=== PATIENT | male | born 1965 | race Caucasian/White ===

== ENCOUNTER 2017-10-03 06:13 | Day surgery (SDC) | payer OTHER ==
[~2017-10-03] VITALS: Ht 182.9 cm; Wt 149.0 kg
[2017-10-03 07:10] LABS: HEMATOCRIT 49.6 % (42.0-52.0); HEMOGLOBIN 16.5 g/dl (13.5-18.0); MEAN CELL VOLUME 89 fl (80.0-100.0); MEAN CORPUSCULAR HEMOGLOBIN 30 pg (27.0-31.0); MEAN CORPUSCULAR HGB CONC 33 g/dl (33.0-37.0); MEAN PLATELET VOLUME 9.7 fl (7.4-10.4); PLATELET COUNT 266 K/mm3 (130-400); RED BLOOD COUNT 5.58 M/mm3 (4.20-5.60); REDCELL DISTRIBUTION WIDTH-CV 13.3 % (11.5-14.5)
[2017-10-03 07:16] VITALS: BP 149/84; PULSE 71; TEMP 97.6
[2017-10-03 07:19] LABS: PROTHROMBIN TIME 11.9 SECONDS (9.7-12.8)
[2017-10-03] MEDS ORDERED: LIPITOR 40MG TA40 MG PO (07:19)
[2017-10-03] MEDS ORDERED: ELIQUIS 5MG PO (07:19)
[2017-10-03] MEDS ORDERED: TYLENOL 325MG325 MG PO (07:19)
[2017-10-03] MEDS ORDERED: ZESTRIL 10MG10 MG PO (07:20)
[2017-10-03] MEDS ORDERED: TOPROL XL100 MG PO (07:21)
[2017-10-03] MEDS ORDERED: ZANTAC 150MG T150 MG PO (07:22)
[2017-10-03 07:27] LABS: CALCIUM 9.8 mg/dL (8.4-10.2); CREATININE, serum 0.85 mg/dL (0.66-1.25); POTASSIUM 4.3 mmol/L (3.4-5.0)
[2017-10-03 07:57] LABS: THYROID STIMULATING HORMONE 0.943 uIU/mL (0.465-4.680)
[2017-10-03] MEDS ORDERED: ASPIRIN E.C. 8181 MG PO (09:36)
[2017-10-03] MEDS ORDERED: MULTAQ400 MG PO (09:36)
== END 2017-10-03 09:54 | disposition home or self-care (01) ==
LOC: COL.CAR 06:13
PROVIDERS: Internal Medicine Cardiovascular Disease
DX: I48.91 Unspecified atrial fibrillation (principal); I25.2 Old myocardial infarction; I10 Essential (primary) hypertension; K21.9 Gastro-esophageal reflux disease without esophagitis; E11.9 Type 2 diabetes mellitus without complications; I87.2 Venous insufficiency (chronic) (peripheral); G47.33 Obstructive sleep apnea (adult) (pediatric); F17.210 Nicotine dependence, cigarettes, uncomplicated; E78.5 Hyperlipidemia, unspecified; Z53.8 Procedure and treatment not carried out for other reasons; Z79.52 Long term (current) use of systemic steroids; Z79.01 Long term (current) use of anticoagulants; Z88.8 Allergy status to other drugs, medicaments and biological substances; Z82.49 Family history of ischemic heart disease and other diseases of the circulatory system

== ENCOUNTER 2019-05-27 11:13 | Observation (INO) | payer OTHER ==
[~2019-05-27] VITALS: Ht 365.8 cm; Wt 158.4 kg
[~2019-05-27 11:13] MED LIST: ASPIRIN E.C. 8181 MG PO; ELIQUIS 5MG PO; LIPITOR 40MG TA40 MG PO; MULTAQ400 MG PO; TOPROL XL100 MG PO; TYLENOL 325MG325 MG PO; ZANTAC 150MG T150 MG PO; ZESTRIL 10MG10 MG PO
--- NOTE | 2019-05-27 11:30 | NUR ---
PT TRANSFERRED FROM [facility] WITH CHEST PAINS. PT WAS IS AFIB W/RVR BUT WAS ON A CARDIZEM DRIP AT [facility] AND CONVERTED TO NSR. ONCE TO [facility]IA [facility] ROOM 311, PT WAS ADMITTED AND GIVEN AN EKG; RESULTS SHOW NSR WITH A 1ST DEGREE HEART BLOCK. ECHO COMPLETED, RT BROUGHT UP A BIPAP FOR THE PT. HE HAS OBSTRUCTIVE SLEEP APNEA, AND WEARS HIS BIPAP WITH 4L OF 02. HE IS SCHEDULED FOR A MEDICATION INDUCED STRESS TEST AND THEREFORE WILL NEED TO BE NPO AFTER MIDNIGHT. WILL CONTINUE TO MONITOR PATIENT.
[2019-05-27 12:20] VITALS: BP 134/92; PULSE 62; TEMP 98.5
[2019-05-27 12:24] VITALS: BP 134/92; PULSE 62; TEMP 98.5
[2019-05-27] MEDS ORDERED: PRINIVIL40 MG PO (14:30)
[2019-05-27 16:38] VITALS: BP 135/83; PULSE 71; TEMP 97.7
--- NOTE | 2019-05-27 17:00 | NUR ---
PT CONTINUES TO NOT COMPLAIN OF PAIN OR DISCOMFORT. RESTING COMFORTABLY IN HIS BED. DAUGHTER AT BEDSIDE. CALL LIGHT AND PT PHONE WITHIN REACH.
[2019-05-27 19:38] VITALS: BP 144/92; PULSE 70; TEMP 97.8
--- NOTE | 2019-05-27 20:00 | NUR ---
Resting in bed. Assessment complete. Bilateral lower leg edema +1 present. Lungs clear. Denies pain. Denies needs at this time. Call light in reach.
[2019-05-27 23:43] VITALS: BP 157/82; PULSE 76; TEMP 97.5
--- NOTE | 2019-05-28 | NUR ---
INT left Ac pulled out. Dressed with gauze. Denies needs at this time. Call light in reach.
[2019-05-28 04:01] VITALS: BP 149/76; PULSE 68; TEMP 97.8
[2019-05-28 05:42] VITALS: BP 149/76; PULSE 68
--- NOTE | 2019-05-28 06:21 | NUR ---
Patient had uneventful night. Resting in bed this AM.
[2019-05-28 06:41] LABS: BASO % 0.5 % (0.0-2.0); EOS # 0.3 (0.0-0.7); EOS % 2.8 % (0-4.0); GRAN # 5.6 (1.4-6.5); GRAN % 64.2 % (42.2-75.2); HEMATOCRIT 49.6 % (42.0-52.0); HEMOGLOBIN 16.1 g/dl (13.5-18.0); LYMPH # 2.2 (1.2-3.4); LYMPH % 24.7 % (20.0-51.0); MEAN CELL VOLUME 91 fl (80.0-100.0); MEAN CORPUSCULAR HEMOGLOBIN 30 pg (27.0-31.0); MEAN CORPUSCULAR HGB CONC 33 g/dl (33.0-37.0); MEAN PLATELET VOLUME 10.1 fl (7.4-10.4); MONO # 0.7 (0.1-0.6); MONO % 7.5 % (1.7-9.3); PLATELET COUNT 300 K/mm3 (130-400); RED BLOOD COUNT 5.46 M/mm3 (4.20-5.60); REDCELL DISTRIBUTION WIDTH-CV 13.2 % (11.5-14.5)
[2019-05-28 06:59] LABS: CALCIUM 9.1 mg/dL (8.4-10.2); CREATININE, serum 0.87 (0.66-1.25); POTASSIUM 4.2 mmol/L (3.4-5.0)
--- NOTE | 2019-05-28 07:18 | NUR ---
Report given to VENICE Amado
[2019-05-28 07:23] VITALS: BP 135/93; PULSE 72; TEMP 97.7
--- NOTE | 2019-05-28 09:15 | NUR ---
PT GOING DOWN FOR STRESS TEST AT THIS TIME.
[2019-05-28 09:50] VITALS: BP 146/96; PULSE 66
[2019-05-28 09:52] VITALS: BP 187/104; PULSE 104
[2019-05-28 09:54] VITALS: BP 162/92; PULSE 87
--- NOTE | 2019-05-28 10:40 | NUR ---
PT RETURNED FROM STRESS TEST AT THIS TIME.
[2019-05-28] MEDS ORDERED: ELIQUIS 5MG PO (10:46)
[2019-05-28] MEDS ORDERED: MULTAQ400 MG PO (10:46)
[2019-05-28] MEDS ORDERED: LIPITOR 40MG TA40 MG PO (10:58)
--- NOTE | 2019-05-28 11:12 | NUR ---
SARITHA met with the patient to discuss discharge plan. The patient lives in [place] with his oldest daughter, Jessi (ph#[phone]). He states that his , Stacy (ph#[phone]), lives in [place] for work. He reports independence with ADLs and does not use any assistive devices. He has a bipap from [facility]. The patient's PCP is Dr. Camp at [facility] and he receives his medications at [facility]. He reports no difficulties obtaining his meds. The patient was interested in completing a DPOA-HC. SARITHA provided form. The patient designated his , Stacy Snider. SARITHA and the patient's NEEDLE CONTROL CHENILLER, Sonja, witnessed the patient's signature. The patient was provided with the original and some copies. A copy was placed in the patient's chart. The patient plans to return back home upon discharge. No additional needs at this time.
--- NOTE | 2019-05-28 12:05 | NUR ---
THIS NURSE INFORMED PT THAT HE WOULD BE ABLE TO DISCHARGE DUE TO [facility] SCAN BEING CLEAR. IV AND TELE REMOVED. PT DISCHARGE EDUCATION PROVIDED. DRAWING OPERATOR WALKED PT OUTSIDE. PT STATED HE WOULD WAIT OUTSIDE AND CALL HIS SISTER TO GET HIM WHILE HE WAS WAITING OUTSIDE.
--- NOTE | 2019-05-28 14:01 | NUR ---
Primary nurse was assisted with [phone] patient care by [employer] student Liliana Robles and [employer] instructor Jing Antunez RN-.
== END 2019-05-28 12:05 | disposition home or self-care (01) ==
LOC: MEDICAL 11:13
PROVIDERS: ADMIT Hospitalist
DX: I21.A1 Myocardial infarction type 2 (principal); I48.0 Paroxysmal atrial fibrillation; I10 Essential (primary) hypertension; E78.5 Hyperlipidemia, unspecified; E66.01 Morbid (severe) obesity due to excess calories; R74.8 Abnormal levels of other serum enzymes; G47.33 Obstructive sleep apnea (adult) (pediatric); K21.9 Gastro-esophageal reflux disease without esophagitis; E11.9 Type 2 diabetes mellitus without complications; I87.2 Venous insufficiency (chronic) (peripheral); F17.210 Nicotine dependence, cigarettes, uncomplicated; Z79.82 Long term (current) use of aspirin; Z79.01 Long term (current) use of anticoagulants; Z88.8 Allergy status to other drugs, medicaments and biological substances; Z79.899 Other long term (current) drug therapy; Z82.49 Family history of ischemic heart disease and other diseases of the circulatory system
CPT/HCPCS: A9500; G0378; J2785

== ENCOUNTER 2022-11-28 09:42 | Day surgery (SDC) | payer OTHER ==
[~2022-11-28] VITALS: Ht 183 cm; Wt 153.8 kg
[2022-11-28] VITALS (410 sets, daily range): BP systolic 131–153; BP diastolic 85–120; PULSE 50–78; TEMP 97.6–98; O2SAT 71–100
[~2022-11-28 09:42] MED LIST changes: +PRINIVIL40 MG PO
[2022-11-28 11:02] LABS: CALCIUM 9.2 mg/dL (8.4-10.2); CREATININE, serum 0.88 mg/dL (0.72-1.25); POTASSIUM 4.2 mmol/L (3.5-4.5)
[2022-11-28 11:05] LABS: INR 1.4 (0.8-3.0); PROTHROMBIN TIME 16.3 SECONDS (9.7-12.8)
--- NOTE | 2022-11-28 17:30 | NUR ---
Patient had episode of bradycardia and became symptomatic; called MYA Patel and per Dr. Juan we are to hold the initial PO dose of sotalol and cardiology will reevaluate the patient in the morning.
--- NOTE | 2022-11-28 20:07 | NUR ---
Receive report from day shift nurse. Pt is eating on the side of the bed with a visitor in the room. Pt's vitals are stable at this time.
--- NOTE | 2022-11-28 21:15 | NUR ---
Pt denies pain, headache, dizziness, nausea, and light headedness upon assessment. Pt is oriented x4 and follows commands. Pt has call light within reach.
[2022-11-29] VITALS (461 sets, daily range): BP systolic 125–131; BP diastolic 84–105; PULSE 58–64; TEMP 97.8–98; O2SAT 75–100
[2022-11-29 05:48] LABS: CALCIUM 9.2 mg/dL (8.4-10.2); CREATININE, serum 0.87 mg/dL (0.72-1.25); MAGNESIUM 2.1 mg/dL (1.6-2.6); POTASSIUM 4.5 mmol/L (3.5-4.5)
--- NOTE | 2022-11-29 06:27 | NUR ---
Pt has sleep apnea and pt states that they have a CPAP at home but rarely wears it at home because he throws the mask across the room due to PTSD. When pt is asleep the SpO2 will drop due the sleep apnea at the periods when pt will have a long pause with his breath and then the HR will drop and will drop into the 30's and 40's and then once the pt starts to take breathes again the hr will go back up to the 70's and 60's.
--- NOTE | 2022-11-29 10:10 | NUR ---
MYA Patel was notified that patient's heart rate was still intermittently dropping in the 30's and 40's. BP remained stable with low heart rate. Will continue with current plan of care and still ok to discharge per cardiology.
--- NOTE | 2022-11-29 10:22 | NUR ---
community worker met with patient to assess for discharge planning. Patient states that he is independent with his activities of daily living and works. Patient states that he lives with his daughter in [place] and plans to return home when discharged. Patient states he has completed advance directives and has insurance. Plan: discharge home.
--- NOTE | 2022-11-29 11:40 | NUR ---
Discharge packet reviewed with patient. Patient states he understands discharge instructions. INT discontinued. Alert and oriented and in no distress upon discharge. Patient was escorted out of the unit with an RN at 1145.
== END 2022-11-29 11:45 | disposition home or self-care (01) ==
LOC: SDCO 09:42 → ICU 09:59 → SDCO 11-29 11:45
PROVIDERS: Nurse Practitioner
DX: I48.91 Unspecified atrial fibrillation (principal); I11.0 Hypertensive heart disease with heart failure; I50.9 Heart failure, unspecified; T46.4X6A Underdosing of angiotensin-converting-enzyme inhibitors, initial encounter; T45.516A Underdosing of anticoagulants, initial encounter; Z91.138 Patient's unintentional underdosing of medication regimen for other reason; Y92.9 Unspecified place or not applicable; F17.220 Nicotine dependence, chewing tobacco, uncomplicated
CPT/HCPCS: OP; C9482; J7050

== ENCOUNTER 2022-12-03 12:22 | Day surgery (SDC) | payer OTHER ==
[2022-11-29] VITALS (14 sets, daily range): O2SAT 84–97
[~2022-12-03] VITALS: Ht 30.5 cm; Wt 156.9 kg
[2022-12-03 12:49] VITALS: BP 174/113; PULSE 77; TEMP 97.9
[2022-12-03 16:15] VITALS: BP 168/125; PULSE 69
--- NOTE | 2022-12-03 16:21 | NUR ---
Pt discharged at approx 1620. his chest dressing was clean and intact upon discharge. pt verbalized understanding of discharge instructions. his VS remained within his normal limits before and after the loop recorder placement. pt continued to tolerate po fluids post-operatively. he was free from concerns or complaints at time of discharge.
== END 2022-12-03 16:20 | disposition home or self-care (01) ==
LOC: COL.CAR 12:22
DX: I48.91 Unspecified atrial fibrillation (principal)
CPT/HCPCS: 27886; C1764

== ENCOUNTER 2022-12-14 12:22 | Day surgery (SDC) | payer OTHER ==
[2022-12-14] VITALS (8 sets, daily range): BP systolic 106–146; BP diastolic 63–93; PULSE 51–92; TEMP 97.5–97.7
[~2022-12-14] VITALS: Ht 182.9 cm; Wt 150.0 kg
[2022-12-14 13:10] LABS: MEAN CELL VOLUME 87 fl (80.0-100.0); MEAN CORPUSCULAR HGB CONC 35 g/dl (33.0-37.0); MEAN PLATELET VOLUME 9.5 fl (7.4-10.4); PLATELET COUNT 309 K/mm3 (130-400); RED BLOOD COUNT 6.42 M/mm3 (4.20-5.60); REDCELL DISTRIBUTION WIDTH-CV 14.3 % (11.5-14.5)
[2022-12-14 13:12] LABS: HEMATOCRIT 56.1 % (42.0-52.0); HEMOGLOBIN 19.4 g/dl (13.5-18.0); MEAN CORPUSCULAR HEMOGLOBIN 30 pg (27-31)
[2022-12-14] MEDS ORDERED: HYGROTON 2525 MG/TAB PO (13:17)
[2022-12-14 13:23] LABS: CALCIUM 9.8 mg/dL (8.4-10.2); CREATININE, serum 1.05 mg/dL (0.72-1.25); INR 1.2 (0.8-3.0); POTASSIUM 3.8 mmol/L (3.5-4.5); PROTHROMBIN TIME 14.3 SECONDS (9.7-12.8)
--- NOTE | 2022-12-14 14:35 | NUR ---
Pt to procedure at this time.
--- NOTE | 2022-12-14 15:04 | NUR ---
SEE MERGE FOR ALL MEDICATIONS INTERVENTIONS AND VITALS.
--- NOTE | 2022-12-14 19:34 | NUR ---
Patient sitting up in bed, A&Ox4. VSS. IV CDI. LF arm in sling. Ice on LF upper chest incision site, scant drainage under dressing. LF lower chest incision site CDI. Patient instructed to call nursing staff for assistance with ambulation. Call light within reach. Bed alarm on
[2022-12-15 03:51] VITALS: BP 126/81; PULSE 99; TEMP 97.9
--- NOTE | 2022-12-15 04:20 | NUR ---
Shift assessment performed. Pt has been in A-Fib on telemetry. He is on 3 L O2. Post-op vitals were WNL. There is minimal bleeding present on the surgical dressings. He complained of increasing pain at the surgical site. Tylenol had already been administered previously to this. I called and spoke to Dr. Byrne who ordered Fentanyl 12.5-25 mcg Q2H PRN. This was administered as ordered and new ice was applied to the area. Pt stated that he is no longer in pain. He expressed to me that he thinks he is having health issues because of the stress that he has experienced since he and his . He stated that he would like find a councelor to work through these thing but doesn't know if he can afford it. Social Work consulted.
[2022-12-15 06:59] VITALS: BP 121/82; PULSE 98; TEMP 98.2
--- NOTE | 2022-12-15 08:00 | NUR ---
Patient sitting up in the recliner sleeping, easily awakened with verbal command. A&Ox4, but drowsy. LF upper chest small amount of drainage. LF lower site CDI. Ice applied. LF arm in sling. Call light within reach
--- NOTE | 2022-12-15 12:32 | NUR ---
Discharge paperwork reviewed with the patient. IV removed, tip intact. Gauze and coban applied. Sling in left arm. Patient ambulated independently to the ER entrance to awaiting vehicle. No further needs expressed.
== END 2022-12-15 12:34 | disposition home or self-care (01) ==
LOC: COL.CAR 12:22 → MEDICAL 17:05 → COL.CAR 12-15 12:34
PROVIDERS: Internal Medicine Interventional Cardiology
DX: I45.5 Other specified heart block (principal); I10 Essential (primary) hypertension; I48.91 Unspecified atrial fibrillation; Z79.899 Other long term (current) drug therapy
CPT/HCPCS: OP; C1785; C1894; C1898; J0690; J2250; J3010; J7030